=== PATIENT | male | born 1935 | race Caucasian/White ===

== ENCOUNTER 2018-10-06 08:29 | Inpatient (IN) | payer OTHER ==
[~2018-10-06] VITALS: Ht 170.2 cm; Wt 71.8 kg
[2018-10-06 08:29] VITALS: Ht 170.2 cm; Wt 71.8 kg
[2018-10-06] MEDS ORDERED: FLO4 PO (09:54)
[2018-10-06] MEDS ORDERED: PREDNISONE2.5 MG PO (09:54)
[2018-10-06] MEDS ORDERED: ZYTIGA500 MG PO (09:54)
[2018-10-06] MEDS ORDERED: CIPRO500 MG PO (09:54)
[2018-10-06 10:13] LABS: PLATELET COUNT 366 x10^3mcL (130-400); RED CELL DISTRIBUTION WIDTH 13.4 % (11.5-14.5)
[2018-10-06 10:33] LABS: ALKALINE PHOSPHATASE 104 U/L (46-116); ALT/SGPT 16 U/L (16-63); AST/SGOT 12 U/L (15-37); BILIRUBIN TOTAL 0.76 mg/dL (0.20-1.00); CALCIUM 7.9 mg/dL (8.5-10.1); CARBON DIOXIDE 24.2 mmol/L (21-32); CHLORIDE SERUM 99 mmol/L (98-107); CREATININE SERUM 1.4 mg/dL (0.7-1.3); GLUCOSE SERUM 139 mg/dL (74-106); SODIUM SERUM 136 mmol/L (136-145); TOTAL PROTEIN, SERUM 6.8 g/dL (6.4-8.2)
[2018-10-06 10:34] LABS: ALBUMIN 2.1 g/dL (3.4-5.0)
[2018-10-06 10:35] LABS: POTASSIUM SERUM 2.6 mmol/L (3.5-5.1)
[2018-10-06 11:42] LABS: UA SPECIFIC GRAVITY 1.025 (1.005-1.035); microscopic required? YES; urine erythrocyte 3+ (NEGATIVE)
[2018-10-06 13:09] LABS: BAND NEUTROPHIL 2 % (0-10); MONOCYTE 1 % (0-7); SEGMENTED NEUTROPHILS 93 % (37-75)
[2018-10-06 13:12] VITALS: BP 139/76
[2018-10-06 13:14] LABS: PLATELET MORPHOLOGY PLATELETS NORMAL; rbc morphology (normal/abnorm) ABNORMAL (NORMAL)
[2018-10-06 16:59] VITALS: BP 102/66
[2018-10-06 21:04] VITALS: BP 113/67
[2018-10-07 05:55] VITALS: BP 117/69
[2018-10-07 06:18] LABS: PLATELET COUNT 317 x10^3mcL (130-400); RED CELL DISTRIBUTION WIDTH 13.9 % (11.5-14.5)
[2018-10-07 06:33] LABS: CALCIUM 6.8 mg/dL (8.5-10.1); CARBON DIOXIDE 22.9 mmol/L (21-32); CHLORIDE SERUM 106 mmol/L (98-107); GLUCOSE SERUM 117 mg/dL (74-106); POTASSIUM SERUM 3.3 mmol/L (3.5-5.1); SODIUM SERUM 140 mmol/L (136-145)
[2018-10-07 09:43] VITALS: BP 105/70
[2018-10-07 11:38] LABS: BAND NEUTROPHIL 4 % (0-10); BASOPHIL 0 % (0-2); METAMYELOCTE 1 % (0-2); MONOCYTE 5 % (0-7); SEGMENTED NEUTROPHILS 85 % (37-75)
[2018-10-07 11:39] LABS: PLATELET MORPHOLOGY LARGE PLATELET SEEN; rbc morphology (normal/abnorm) NORMAL (NORMAL)
[2018-10-07 13:08] VITALS: BP 116/72
[2018-10-07 17:40] VITALS: BP 111/64
[2018-10-07 20:51] VITALS: BP 95/66
[2018-10-08 06:13] VITALS: BP 130/67
[2018-10-08 06:14] LABS: BASOPHIL % 0.2 % (0-2); PLATELET COUNT 317 x10^3mcL (130-400); RED CELL DISTRIBUTION WIDTH 13.8 % (11.5-14.5)
[2018-10-08 06:29] LABS: CALCIUM 7.1 mg/dL (8.5-10.1); CARBON DIOXIDE 22.5 mmol/L (21-32); CHLORIDE SERUM 106 mmol/L (98-107); CREATININE SERUM 0.9 mg/dL (0.7-1.3); GLUCOSE SERUM 148 mg/dL (74-106); POTASSIUM SERUM 3.7 mmol/L (3.5-5.1); SODIUM SERUM 137 mmol/L (136-145)
[2018-10-08 09:25] VITALS: BP 115/66
[2018-10-08 14:00] VITALS: BP 129/76
[2018-10-08 17:20] VITALS: BP 132/73
[2018-10-08 18:58] VITALS: BP 132/73
== END 2018-10-08 19:48 | disposition home or self-care (01) | DRG 872 ==
LOC: ED 08:29 → DU 11:04
PROVIDERS: Emergency Medicine; ADMIT Internal Medicine
DX: A41.9 Sepsis, unspecified organism (principal); N39.0 Urinary tract infection, site not specified; N17.9 Acute kidney failure, unspecified; R73.9 Hyperglycemia, unspecified; E87.6 Hypokalemia; E86.0 Dehydration; N18.9 Chronic kidney disease, unspecified; I95.9 Hypotension, unspecified; Z68.24 Body mass index [BMI] 24.0-24.9, adult; Z85.46 Personal history of malignant neoplasm of prostate
CPT/HCPCS: 82962; J0696; J2270; J2405; J3480; J7030; J7050; J7512; Q0092

== ENCOUNTER 2019-04-17 15:41 | Inpatient (IN) | payer OTHER ==
[~2019-04-17] VITALS: Ht 170.2 cm; Wt 70.8 kg
[~2019-04-17 15:41] MED LIST: CIPRO500 MG PO; FLO4 PO; PREDNISONE2.5 MG PO; ZYTIGA500 MG PO
[2019-04-17 15:53] VITALS: Ht 170.2 cm; Wt 70.8 kg
[2019-04-17 17:45] LABS: BASOPHIL % 0.1 % (0-2); PLATELET COUNT 390 x10^3mcL (130-400)
[2019-04-17 17:46] LABS: RED CELL DISTRIBUTION WIDTH 16.5 % (11.5-14.5)
[2019-04-17 18:23] LABS: CALCIUM 7.8 mg/dL (8.5-10.1); CARBON DIOXIDE 23.3 mmol/L (21-32); CHLORIDE SERUM 104 mmol/L (98-107); CREATININE SERUM 0.8 mg/dL (0.7-1.3); GLUCOSE SERUM 134 mg/dL (74-106); POTASSIUM SERUM 3.5 mmol/L (3.5-5.1); SODIUM SERUM 138 mmol/L (136-145)
[2019-04-17 18:55] LABS: microscopic required? YES; urine erythrocyte 3+ (NEGATIVE)
[2019-04-17] MEDS ORDERED: PREDNISONE50 MG PO (21:46)
[2019-04-17] MEDS ORDERED: ZYTIGA250 MG PO (21:46)
[2019-04-17] MEDS ORDERED: POTASSIUM CHLO10 MEQ PO (21:47)
[2019-04-17] MEDS ORDERED: CORAL CALCIUM1 EAC2 PO (21:47)
[2019-04-17] MEDS ORDERED: FLO4 PO (21:47)
[2019-04-17] MEDS ORDERED: NATURAL SAW PA160 MG PO (21:48)
[2019-04-17] MEDS ORDERED: [UNRECOGNIZED DRUG - CODE] PO (21:48)
[2019-04-17] MEDS ORDERED: LUPRON DEPOT3.75 MG (21:49)
[2019-04-18 00:23] VITALS: BP 109/58
[2019-04-18 04:00] VITALS: BP 107/74
[2019-04-18 07:14] LABS: BASOPHIL % 0.2 % (0-2); PLATELET COUNT 337 x10^3mcL (130-400)
[2019-04-18 07:18] LABS: RED CELL DISTRIBUTION WIDTH 16.6 % (11.5-14.5)
[2019-04-18 07:45] LABS: CALCIUM 7.4 mg/dL (8.5-10.1); CHLORIDE SERUM 108 mmol/L (98-107); CREATININE SERUM 0.7 mg/dL (0.7-1.3); GLUCOSE SERUM 99 mg/dL (74-106); POTASSIUM SERUM 3.8 mmol/L (3.5-5.1); SODIUM SERUM 141 mmol/L (136-145)
[2019-04-18 08:45] VITALS: BP 107/65
[2019-04-18 17:09] VITALS: BP 103/71
[2019-04-18 20:12] VITALS: BP 106/66
[2019-04-19 05:25] VITALS: BP 124/75
[2019-04-19 07:10] LABS: CALCIUM 7.8 mg/dL (8.5-10.1); CARBON DIOXIDE 24.3 mmol/L (21-32); CHLORIDE SERUM 105 mmol/L (98-107); CREATININE SERUM 0.7 mg/dL (0.7-1.3); GLUCOSE SERUM 120 mg/dL (74-106); POTASSIUM SERUM 3.9 mmol/L (3.5-5.1); SODIUM SERUM 138 mmol/L (136-145)
[2019-04-19 07:16] LABS: BASOPHIL % 0.2 % (0-2); PLATELET COUNT 320 x10^3mcL (130-400)
[2019-04-19 07:22] LABS: RED CELL DISTRIBUTION WIDTH 16.3 % (11.5-14.5)
[2019-04-19 08:17] VITALS: BP 106/56
[2019-04-19 08:57] VITALS: BP 106/56
[2019-04-19 17:51] VITALS: BP 130/98
[2019-04-19 20:36] VITALS: BP 90/59
[2019-04-20 05:09] VITALS: BP 115/69
[2019-04-20 06:15] LABS: BASOPHIL % 0.2 % (0-2); PLATELET COUNT 360 x10^3mcL (130-400)
[2019-04-20 06:21] LABS: RED CELL DISTRIBUTION WIDTH 15.9 % (11.5-14.5)
[2019-04-20 06:28] LABS: CALCIUM 8.5 mg/dL (8.5-10.1); CARBON DIOXIDE 26.8 mmol/L (21-32); CHLORIDE SERUM 104 mmol/L (98-107); CREATININE SERUM 0.8 mg/dL (0.7-1.3); GLUCOSE SERUM 134 mg/dL (74-106); POTASSIUM SERUM 4.1 mmol/L (3.5-5.1); SODIUM SERUM 138 mmol/L (136-145)
[2019-04-20 08:03] VITALS: BP 101/62
[2019-04-20 13:16] VITALS: BP 135/110
[2019-04-20 15:57] VITALS: BP 105/54; BP 135/110
[2019-04-20] MEDS ORDERED: LEV500 PO (16:03)
[2019-04-20 16:13] VITALS: BP 105/54
== END 2019-04-20 16:55 | disposition home or self-care (01) | DRG 871 ==
LOC: ED 15:41 → MU 22:07
PROVIDERS: Emergency Medicine; ADMIT Internal Medicine
DX: A41.9 Sepsis, unspecified organism (principal); J18.9 Pneumonia, unspecified organism; C79.9 Secondary malignant neoplasm of unspecified site; N39.0 Urinary tract infection, site not specified; C79.51 Secondary malignant neoplasm of bone; C61 Malignant neoplasm of prostate; M79.652 Pain in left thigh; M25.562 Pain in left knee; R26.2 Difficulty in walking, not elsewhere classified; M54.9 Dorsalgia, unspecified; J44.9 Chronic obstructive pulmonary disease, unspecified; K57.90 Diverticulosis of intestine, part unspecified, without perforation or abscess without bleeding; I10 Essential (primary) hypertension; Z79.899 Other long term (current) drug therapy; Z79.52 Long term (current) use of systemic steroids; Z68.24 Body mass index [BMI] 24.0-24.9, adult
CPT/HCPCS: G0378; J0696; J1644; J1956; J2270; J2405; J7030; J7040; J7060; J7510; J7620; Q0092